=== PATIENT | male | born 1960 | race Caucasian/White ===

== ENCOUNTER 2022-12-04 15:32 | Inpatient (IN) | payer OTHER ==
[2022-12-04 16:04] VITALS: BMI 31.0
[2022-12-04] MEDS ORDERED: guaiFENesin 600 MG TABLET.ER (FP) PO PRN (19:57)
[2022-12-04] MEDS ORDERED: BENZOCAINE/MENTHOL (CHLORASEPTIC ) LOZENGE MM PRN (19:57)
[2022-12-04] MEDS ORDERED: NICOTINE POLACRILEX 2 MG GUM BUC PRN (19:57)
[2022-12-04] MEDS ORDERED: NALOXONE HCL (KLOXXADO) 8 MG SPRAY NS PRN (19:57)
[2022-12-04] MEDS ORDERED: AMMONIUM LACTATE 12% LOTION 225 GM BOTTLE TP PRN (19:57)
[2022-12-04] MEDS ORDERED: LOPERAMIDE HCL 2 MG CAPSULE PO PRN (19:57)
[2022-12-04] MEDS ORDERED: MAG HYDROX/AL HYDROX/SIMETH 30 ML UNIT-DOSE CUP PO PRN (19:57)
[2022-12-04] MEDS ORDERED: POLYETHYLENE GLYCOL (HEALTHYLAX) 3350 17 GM PACKET PO PRN (19:57)
[2022-12-04] MEDS ORDERED: MAGNESIUM HYDROX 2400MG/30ML ORAL SUSPENSION 30 ML CUP PO PRN (19:57)
[2022-12-04] MEDS ORDERED: NALOXONE HCL 0.4 MG/ML VIAL IM PRN (19:57)
[2022-12-04] MEDS ORDERED: BENZONATATE 200 MG CAPSULE PO PRN (19:57)
[2022-12-04] MEDS: MELATONIN 5 MG TABLETS PO SCH (22:56)
[2022-12-04] MEDS: THIAMINE HCL 100 MG TABLET (FP) PO SCH (22:57)
[2022-12-04] MEDS ORDERED: TUBERCULIN PPD 5 TU/0.1ML SYRINGE (IN PATIENT USE ONLY) ID ONE (23:00)
[2022-12-04] MEDS ORDERED: TUBERCULIN PPD 5 TU/0.1ML VIAL ID ONE (23:40)
[2022-12-05 10:27] LABS: HEMATOCRIT 41.6 % (35.4-49); HEMOGLOBIN 14.3 GM/dL (11.7-16.9); MCHC 34.5 g/dl (32.0-35.9); MEAN CELL VOLUME 92.9 fl (80-96); MEAN PLT VOLUME 9.6 fl (7.5-11.1); PLATELET COUNT 291 10^3/uL (134-434); RBC 4.48 M/mm3 (4.00-5.60); RDW 13.9 % (11.9-15.9); WHITE BLOOD COUNT 11.3 K/mm3 (4.0-10.0)
[2022-12-05 10:33] LABS: CALCIUM 8.4 mg/dL (8.5-10.1)
[2022-12-05 10:34] LABS: BLOOD UREA NITROGEN 14.3 mg/dL (7-18)
[2022-12-05 10:37] LABS: CREATININE 0.8 mg/dL (0.55-1.3)
[2022-12-05 10:39] LABS: BILIRUBIN,TOTAL 0.3 mg/dL (0.2-1); TOT PROT 7.1 g/dl (6.4-8.2)
[2022-12-05] MEDS ORDERED: methaDONE HCL 10 MG TABLET PO SCH (11:45)
[2022-12-05] MEDS: PRENATAL VITAMINS W/ FOLIC ACID TABLET (FP) PO SCH (12:00)
[2022-12-05] MEDS: NICOTINE 14 MG/24 HOURS TOPICAL PATCH TD SCH (12:00)
[2022-12-05 13:58] LABS: SYPHILIS W/ RPR CONF NON-REACTIVE (NONREACTIVE)
[2022-12-05] MEDS: THIAMINE HCL 100 MG TABLET (FP) PO SCH (21:39)
[2022-12-05] MEDS: MELATONIN 5 MG TABLETS PO SCH (21:39)
[2022-12-05] MEDS: IBUPROFEN 600 MG TABLET (FP) PO PRN (23:20)
[2022-12-06] MEDS: IBUPROFEN 600 MG TABLET (FP) PO PRN (08:59)
[2022-12-06] MEDS: NICOTINE 14 MG/24 HOURS TOPICAL PATCH TD SCH (10:13)
[2022-12-06] MEDS: LISINOPRIL 10 MG TABLET PO SCH (10:13)
[2022-12-06] MEDS: PRENATAL VITAMINS W/ FOLIC ACID TABLET (FP) PO SCH (10:13)
[2022-12-06] MEDS: HYDROCHLOROTHIAZIDE 25 MG TABLET (FP) PO SCH (10:13)
[2022-12-06] MEDS: DARUNAVIR/COB/EMTRI/TENOF (SYMTUZA) TABLET (NF) PO SCH (10:13)
[2022-12-06] MEDS: metFORMIN HCL 500 MG TABLET (FP) PO SCH ×2 (10:13→16:51)
[2022-12-06] MEDS: ARTIFICIAL TEARS (POLYVINYL ALCOHOL) OPTH DROPS OU PRN (10:19)
[2022-12-06] MEDS: ATORVASTATIN CA 10 MG TABLET (FP) PO SCH (21:08)
[2022-12-06] MEDS: MELATONIN 5 MG TABLETS PO SCH (21:08)
[2022-12-06] MEDS: THIAMINE HCL 100 MG TABLET (FP) PO SCH (21:08)
[2022-12-06] MEDS: IBUPROFEN 400 MG TABLET (FP) PO PRN (21:09)
[2022-12-07] MEDS: metFORMIN HCL 500 MG TABLET (FP) PO SCH ×2 (06:12→17:12)
[2022-12-07] MEDS: ACETAMINOPHEN 325 MG TABLET (FP) PO PRN (07:00)
[2022-12-07] MEDS: DARUNAVIR/COB/EMTRI/TENOF (SYMTUZA) TABLET (NF) PO SCH (07:26)
[2022-12-07] MEDS: LISINOPRIL 10 MG TABLET PO SCH (10:07)
[2022-12-07] MEDS: NICOTINE 14 MG/24 HOURS TOPICAL PATCH TD SCH (10:07)
[2022-12-07] MEDS: PRENATAL VITAMINS W/ FOLIC ACID TABLET (FP) PO SCH (10:07)
[2022-12-07] MEDS: HYDROCHLOROTHIAZIDE 25 MG TABLET (FP) PO SCH (10:07)
[2022-12-07] MEDS: IBUPROFEN 600 MG TABLET (FP) PO PRN (13:36)
[2022-12-07] MEDS: ARTIFICIAL TEARS (POLYVINYL ALCOHOL) OPTH DROPS OU PRN ×2 (13:38→21:30)
[2022-12-07] MEDS: MELATONIN 5 MG TABLETS PO SCH (21:28)
[2022-12-07] MEDS: THIAMINE HCL 100 MG TABLET (FP) PO SCH (21:29)
[2022-12-07] MEDS: ATORVASTATIN CA 10 MG TABLET (FP) PO SCH (21:29)
[2022-12-07] MEDS: IBUPROFEN 400 MG TABLET (FP) PO PRN (21:29)
[2022-12-08] MEDS: ACETAMINOPHEN 325 MG TABLET (FP) PO PRN ×2 (02:19→23:11)
[2022-12-08] MEDS: metFORMIN HCL 500 MG TABLET (FP) PO SCH ×2 (06:29→16:34)
[2022-12-08] MEDS: DARUNAVIR/COB/EMTRI/TENOF (SYMTUZA) TABLET (NF) PO SCH (07:32)
[2022-12-08] MEDS: NICOTINE 14 MG/24 HOURS TOPICAL PATCH TD SCH (10:21)
[2022-12-08] MEDS: PRENATAL VITAMINS W/ FOLIC ACID TABLET (FP) PO SCH (10:21)
[2022-12-08] MEDS: LISINOPRIL 10 MG TABLET PO SCH (10:21)
[2022-12-08] MEDS: HYDROCHLOROTHIAZIDE 25 MG TABLET (FP) PO SCH (10:21)
[2022-12-08] MEDS: ARTIFICIAL TEARS (POLYVINYL ALCOHOL) OPTH DROPS OU PRN ×2 (10:23→21:33)
[2022-12-08] MEDS: IBUPROFEN 600 MG TABLET (FP) PO PRN (13:34)
[2022-12-08] MEDS: MELATONIN 5 MG TABLETS PO SCH (21:33)
[2022-12-08] MEDS: ATORVASTATIN CA 10 MG TABLET (FP) PO SCH (21:33)
[2022-12-08] MEDS: THIAMINE HCL 100 MG TABLET (FP) PO SCH (21:35)
[2022-12-09] MEDS: IBUPROFEN 600 MG TABLET (FP) PO PRN ×2 (01:38→13:46)
[2022-12-09] MEDS: metFORMIN HCL 500 MG TABLET (FP) PO SCH ×2 (06:29→16:32)
[2022-12-09] MEDS: DARUNAVIR/COB/EMTRI/TENOF (SYMTUZA) TABLET (NF) PO SCH (07:06)
[2022-12-09] MEDS: PRENATAL VITAMINS W/ FOLIC ACID TABLET (FP) PO SCH (09:56)
[2022-12-09] MEDS: NICOTINE 14 MG/24 HOURS TOPICAL PATCH TD SCH (09:56)
[2022-12-09] MEDS: LISINOPRIL 10 MG TABLET PO SCH (09:57)
[2022-12-09] MEDS: HYDROCHLOROTHIAZIDE 25 MG TABLET (FP) PO SCH (09:57)
[2022-12-09] MEDS: THIAMINE HCL 100 MG TABLET (FP) PO SCH (21:29)
[2022-12-09] MEDS: ATORVASTATIN CA 10 MG TABLET (FP) PO SCH (21:29)
[2022-12-09] MEDS: MELATONIN 5 MG TABLETS PO SCH (21:29)
[2022-12-10] MEDS: IBUPROFEN 600 MG TABLET (FP) PO PRN (04:29)
[2022-12-10] MEDS: metFORMIN HCL 500 MG TABLET (FP) PO SCH ×2 (06:41→16:24)
[2022-12-10] MEDS: PRENATAL VITAMINS W/ FOLIC ACID TABLET (FP) PO SCH (09:54)
[2022-12-10] MEDS: LISINOPRIL 10 MG TABLET PO SCH (09:54)
[2022-12-10] MEDS: HYDROCHLOROTHIAZIDE 25 MG TABLET (FP) PO SCH (09:54)
[2022-12-10] MEDS: NICOTINE 14 MG/24 HOURS TOPICAL PATCH TD SCH (09:54)
[2022-12-10] MEDS: DARUNAVIR/COB/EMTRI/TENOF (SYMTUZA) TABLET (NF) PO SCH (09:55)
[2022-12-10 15:46] LABS: PH,URINE 5.5 (5.0-8.0); URINE APPEARANCE CLEAR; URINE BILIRUBIN NEGATIVE (NEGATIVE); URINE COLOR YELLOW; URINE GLUCOSE (UA) NEGATIVE (NEGATIVE); URINE KETONE NEGATIVE (NEGATIVE); URINE LEUK ESTERASE NEGATIVE (NEGATIVE); URINE NITRITE NEGATIVE (NEGATIVE); URINE PROTEIN NEGATIVE (NEGATIVE); URINE UROBILINOGEN 0.2 mg/dL (0.2-1.0)
[2022-12-10] MEDS: ATORVASTATIN CA 10 MG TABLET (FP) PO SCH (21:26)
[2022-12-10] MEDS: MELATONIN 5 MG TABLETS PO SCH (21:26)
[2022-12-10] MEDS: THIAMINE HCL 100 MG TABLET (FP) PO SCH (21:26)
[2022-12-10] MEDS: ARTIFICIAL TEARS (POLYVINYL ALCOHOL) OPTH DROPS OU PRN (21:27)
[2022-12-11] MEDS: IBUPROFEN 600 MG TABLET (FP) PO PRN (01:00)
[2022-12-11] MEDS: metFORMIN HCL 500 MG TABLET (FP) PO SCH ×2 (06:21→16:31)
[2022-12-11] MEDS: DARUNAVIR/COB/EMTRI/TENOF (SYMTUZA) TABLET (NF) PO SCH (07:13)
[2022-12-11] MEDS: NICOTINE 14 MG/24 HOURS TOPICAL PATCH TD SCH (09:48)
[2022-12-11] MEDS: PRENATAL VITAMINS W/ FOLIC ACID TABLET (FP) PO SCH (09:48)
[2022-12-11] MEDS: LISINOPRIL 10 MG TABLET PO SCH (09:49)
[2022-12-11] MEDS: HYDROCHLOROTHIAZIDE 25 MG TABLET (FP) PO SCH (09:49)
[2022-12-11] MEDS: NICOTINE 10 MG CARTRIDGE (INHALER) IH PRN (11:59)
[2022-12-11] MEDS: ARTIFICIAL TEARS (POLYVINYL ALCOHOL) OPTH DROPS OU PRN ×2 (16:32→21:30)
[2022-12-11] MEDS: MELATONIN 5 MG TABLETS PO SCH (21:29)
[2022-12-11] MEDS: ATORVASTATIN CA 10 MG TABLET (FP) PO SCH (21:29)
[2022-12-11] MEDS: THIAMINE HCL 100 MG TABLET (FP) PO SCH (21:29)
[2022-12-12] MEDS: metFORMIN HCL 500 MG TABLET (FP) PO SCH ×2 (06:08→16:27)
[2022-12-12] MEDS: DARUNAVIR/COB/EMTRI/TENOF (SYMTUZA) TABLET (NF) PO SCH (07:08)
[2022-12-12] MEDS: HYDROCHLOROTHIAZIDE 25 MG TABLET (FP) PO SCH (10:10)
[2022-12-12] MEDS: LISINOPRIL 10 MG TABLET PO SCH (10:10)
[2022-12-12] MEDS: NICOTINE 14 MG/24 HOURS TOPICAL PATCH TD SCH (10:10)
[2022-12-12] MEDS: PRENATAL VITAMINS W/ FOLIC ACID TABLET (FP) PO SCH (10:11)
[2022-12-12] MEDS: MELATONIN 5 MG TABLETS PO SCH (21:31)
[2022-12-12] MEDS: ATORVASTATIN CA 10 MG TABLET (FP) PO SCH (21:31)
[2022-12-12] MEDS: THIAMINE HCL 100 MG TABLET (FP) PO SCH (21:31)
[2022-12-12] MEDS: COLLOIDAL OATMEAL 1 BAR EACH TP PRN (21:33)
[2022-12-13] MEDS: ACETAMINOPHEN 325 MG TABLET (FP) PO PRN (01:12)
[2022-12-13] MEDS: metFORMIN HCL 500 MG TABLET (FP) PO SCH ×2 (06:09→18:20)
[2022-12-13] MEDS: DARUNAVIR/COB/EMTRI/TENOF (SYMTUZA) TABLET (NF) PO SCH (07:04)
[2022-12-13] MEDS: HYDROCHLOROTHIAZIDE 25 MG TABLET (FP) PO SCH (10:08)
[2022-12-13] MEDS: PRENATAL VITAMINS W/ FOLIC ACID TABLET (FP) PO SCH (10:08)
[2022-12-13] MEDS: LISINOPRIL 10 MG TABLET PO SCH (10:08)
[2022-12-13] MEDS: NICOTINE 14 MG/24 HOURS TOPICAL PATCH TD SCH (10:08)
[2022-12-13] MEDS: IBUPROFEN 600 MG TABLET (FP) PO PRN (17:01)
[2022-12-13] MEDS: ATORVASTATIN CA 10 MG TABLET (FP) PO SCH (21:37)
[2022-12-13] MEDS: THIAMINE HCL 100 MG TABLET (FP) PO SCH (21:37)
[2022-12-13] MEDS: MELATONIN 5 MG TABLETS PO SCH (21:37)
[2022-12-13] MEDS: ARTIFICIAL TEARS (POLYVINYL ALCOHOL) OPTH DROPS OU PRN (21:38)
[2022-12-14] MEDS: IBUPROFEN 400 MG TABLET (FP) PO PRN (02:13)
[2022-12-14] MEDS: metFORMIN HCL 500 MG TABLET (FP) PO SCH ×2 (06:00→17:04)
[2022-12-14] MEDS: DARUNAVIR/COB/EMTRI/TENOF (SYMTUZA) TABLET (NF) PO SCH (07:02)
[2022-12-14] MEDS: LISINOPRIL 10 MG TABLET PO SCH (09:52)
[2022-12-14] MEDS: HYDROCHLOROTHIAZIDE 25 MG TABLET (FP) PO SCH (09:52)
[2022-12-14] MEDS: PRENATAL VITAMINS W/ FOLIC ACID TABLET (FP) PO SCH (09:52)
[2022-12-14] MEDS: ARTIFICIAL TEARS (POLYVINYL ALCOHOL) OPTH DROPS OU PRN ×2 (09:53→21:48)
[2022-12-14] MEDS: NICOTINE 14 MG/24 HOURS TOPICAL PATCH TD SCH (09:53)
[2022-12-14] MEDS: IBUPROFEN 600 MG TABLET (FP) PO PRN (09:54)
[2022-12-14] MEDS: MELATONIN 5 MG TABLETS PO SCH (21:48)
[2022-12-14] MEDS: ATORVASTATIN CA 10 MG TABLET (FP) PO SCH (21:48)
[2022-12-14] MEDS: THIAMINE HCL 100 MG TABLET (FP) PO SCH (21:48)
[2022-12-15] MEDS: metFORMIN HCL 500 MG TABLET (FP) PO SCH ×2 (06:08→16:39)
[2022-12-15] MEDS: DARUNAVIR/COB/EMTRI/TENOF (SYMTUZA) TABLET (NF) PO SCH (07:03)
[2022-12-15] MEDS: IBUPROFEN 600 MG TABLET (FP) PO PRN (08:36)
[2022-12-15] MEDS: PRENATAL VITAMINS W/ FOLIC ACID TABLET (FP) PO SCH (10:10)
[2022-12-15] MEDS: LISINOPRIL 10 MG TABLET PO SCH (10:10)
[2022-12-15] MEDS: HYDROCHLOROTHIAZIDE 25 MG TABLET (FP) PO SCH (10:10)
[2022-12-15] MEDS: NICOTINE 14 MG/24 HOURS TOPICAL PATCH TD SCH (10:10)
[2022-12-15] MEDS ORDERED: GABAPENTIN 400 MG CAPSULE PO SCH (14:45)
[2022-12-15] MEDS: GABAPENTIN 300 MG CAPSULE PO SCH (21:57)
[2022-12-15] MEDS: QUEtiapine FUMARATE 25 MG TABLET PO SCH (21:57)
[2022-12-15] MEDS: MELATONIN 5 MG TABLETS PO SCH (21:57)
[2022-12-15] MEDS: ATORVASTATIN CA 10 MG TABLET (FP) PO SCH (21:57)
[2022-12-15] MEDS: THIAMINE HCL 100 MG TABLET (FP) PO SCH (21:57)
[2022-12-16] MEDS: GABAPENTIN 300 MG CAPSULE PO SCH ×3 (06:51→21:47)
[2022-12-16] MEDS: metFORMIN HCL 500 MG TABLET (FP) PO SCH ×2 (06:51→16:35)
[2022-12-16] MEDS: DARUNAVIR/COB/EMTRI/TENOF (SYMTUZA) TABLET (NF) PO SCH (07:16)
[2022-12-16] MEDS: PRENATAL VITAMINS W/ FOLIC ACID TABLET (FP) PO SCH (10:06)
[2022-12-16] MEDS: LISINOPRIL 10 MG TABLET PO SCH (10:07)
[2022-12-16] MEDS: HYDROCHLOROTHIAZIDE 25 MG TABLET (FP) PO SCH (10:07)
[2022-12-16] MEDS: NICOTINE 14 MG/24 HOURS TOPICAL PATCH TD SCH (10:07)
[2022-12-16] MEDS: BACLOFEN 10 MG TABLET (FP) PO PRN ×2 (13:55→21:50)
[2022-12-16] MEDS: MELATONIN 5 MG TABLETS PO SCH (21:47)
[2022-12-16] MEDS: QUEtiapine FUMARATE 25 MG TABLET PO SCH (21:48)
[2022-12-16] MEDS: THIAMINE HCL 100 MG TABLET (FP) PO SCH (21:48)
[2022-12-16] MEDS: ATORVASTATIN CA 10 MG TABLET (FP) PO SCH (21:48)
[2022-12-16] MEDS: ARTIFICIAL TEARS (POLYVINYL ALCOHOL) OPTH DROPS OU PRN (21:52)
[2022-12-17] MEDS: metFORMIN HCL 500 MG TABLET (FP) PO SCH ×2 (06:27→16:54)
[2022-12-17] MEDS: GABAPENTIN 300 MG CAPSULE PO SCH ×3 (06:27→21:46)
[2022-12-17] MEDS: DARUNAVIR/COB/EMTRI/TENOF (SYMTUZA) TABLET (NF) PO SCH (07:57)
[2022-12-17] MEDS: LISINOPRIL 10 MG TABLET PO SCH (10:04)
[2022-12-17] MEDS: HYDROCHLOROTHIAZIDE 25 MG TABLET (FP) PO SCH (10:04)
[2022-12-17] MEDS: PRENATAL VITAMINS W/ FOLIC ACID TABLET (FP) PO SCH (10:04)
[2022-12-17] MEDS: NICOTINE 14 MG/24 HOURS TOPICAL PATCH TD SCH (10:04)
[2022-12-17] MEDS: MELATONIN 5 MG TABLETS PO SCH (21:46)
[2022-12-17] MEDS: THIAMINE HCL 100 MG TABLET (FP) PO SCH (21:46)
[2022-12-17] MEDS: QUEtiapine FUMARATE 25 MG TABLET PO SCH (21:46)
[2022-12-17] MEDS: ATORVASTATIN CA 10 MG TABLET (FP) PO SCH (21:46)
[2022-12-17] MEDS: ARTIFICIAL TEARS (POLYVINYL ALCOHOL) OPTH DROPS OU PRN (21:49)
[2022-12-18] MEDS: GABAPENTIN 300 MG CAPSULE PO SCH ×3 (07:08→21:28)
[2022-12-18] MEDS: metFORMIN HCL 500 MG TABLET (FP) PO SCH ×2 (07:11→16:33)
[2022-12-18] MEDS: DARUNAVIR/COB/EMTRI/TENOF (SYMTUZA) TABLET (NF) PO SCH (07:12)
[2022-12-18] MEDS: NICOTINE 14 MG/24 HOURS TOPICAL PATCH TD SCH (10:11)
[2022-12-18] MEDS: HYDROCHLOROTHIAZIDE 25 MG TABLET (FP) PO SCH (10:11)
[2022-12-18] MEDS: LISINOPRIL 10 MG TABLET PO SCH (10:11)
[2022-12-18] MEDS: PRENATAL VITAMINS W/ FOLIC ACID TABLET (FP) PO SCH (10:11)
[2022-12-18] MEDS: MELATONIN 5 MG TABLETS PO SCH (21:28)
[2022-12-18] MEDS: ATORVASTATIN CA 10 MG TABLET (FP) PO SCH (21:28)
[2022-12-18] MEDS: ARTIFICIAL TEARS (POLYVINYL ALCOHOL) OPTH DROPS OU PRN (21:28)
[2022-12-18] MEDS: QUEtiapine FUMARATE 25 MG TABLET PO SCH (21:28)
[2022-12-18] MEDS: THIAMINE HCL 100 MG TABLET (FP) PO SCH (21:28)
[2022-12-19] MEDS: metFORMIN HCL 500 MG TABLET (FP) PO SCH ×2 (06:21→16:50)
[2022-12-19] MEDS: GABAPENTIN 300 MG CAPSULE PO SCH ×3 (06:22→21:36)
[2022-12-19] MEDS: DARUNAVIR/COB/EMTRI/TENOF (SYMTUZA) TABLET (NF) PO SCH (07:06)
[2022-12-19] MEDS: IBUPROFEN 600 MG TABLET (FP) PO PRN (09:18)
[2022-12-19] MEDS: LISINOPRIL 10 MG TABLET PO SCH (09:19)
[2022-12-19] MEDS: PRENATAL VITAMINS W/ FOLIC ACID TABLET (FP) PO SCH (09:19)
[2022-12-19] MEDS: HYDROCHLOROTHIAZIDE 25 MG TABLET (FP) PO SCH (09:19)
[2022-12-19] MEDS: NICOTINE 14 MG/24 HOURS TOPICAL PATCH TD SCH (09:21)
[2022-12-19] MEDS: ATORVASTATIN CA 10 MG TABLET (FP) PO SCH (21:36)
[2022-12-19] MEDS: QUEtiapine FUMARATE 25 MG TABLET PO SCH (21:36)
[2022-12-19] MEDS: MELATONIN 5 MG TABLETS PO SCH (21:36)
[2022-12-19] MEDS: THIAMINE HCL 100 MG TABLET (FP) PO SCH (21:36)
[2022-12-19] MEDS: ACETAMINOPHEN 325 MG TABLET (FP) PO PRN (22:08)
[2022-12-20] MEDS ORDERED: methaDONE HCL 10 MG TABLET PO SCH (06:00)
[2022-12-20] MEDS: metFORMIN HCL 500 MG TABLET (FP) PO SCH ×2 (06:21→16:51)
[2022-12-20] MEDS: GABAPENTIN 300 MG CAPSULE PO SCH ×3 (06:22→21:42)
[2022-12-20] MEDS: COLLOIDAL OATMEAL 1 BAR EACH TP PRN (06:45)
[2022-12-20] MEDS: DARUNAVIR/COB/EMTRI/TENOF (SYMTUZA) TABLET (NF) PO SCH (07:02)
[2022-12-20] MEDS: PRENATAL VITAMINS W/ FOLIC ACID TABLET (FP) PO SCH (09:58)
[2022-12-20] MEDS: LISINOPRIL 10 MG TABLET PO SCH (09:58)
[2022-12-20] MEDS: NICOTINE 14 MG/24 HOURS TOPICAL PATCH TD SCH (09:58)
[2022-12-20] MEDS: HYDROCHLOROTHIAZIDE 25 MG TABLET (FP) PO SCH (09:58)
[2022-12-20] MEDS: IBUPROFEN 600 MG TABLET (FP) PO PRN ×2 (09:59→21:46)
[2022-12-20] MEDS: MELATONIN 5 MG TABLETS PO SCH (21:41)
[2022-12-20] MEDS: THIAMINE HCL 100 MG TABLET (FP) PO SCH (21:42)
[2022-12-20] MEDS: QUEtiapine FUMARATE 25 MG TABLET PO SCH (21:42)
[2022-12-20] MEDS: ATORVASTATIN CA 10 MG TABLET (FP) PO SCH (21:42)
[2022-12-20] MEDS: BACLOFEN 10 MG TABLET (FP) PO PRN (21:45)
[2022-12-21] MEDS: metFORMIN HCL 500 MG TABLET (FP) PO SCH ×2 (06:13→16:48)
[2022-12-21] MEDS: GABAPENTIN 300 MG CAPSULE PO SCH ×3 (06:13→21:28)
[2022-12-21] MEDS: DARUNAVIR/COB/EMTRI/TENOF (SYMTUZA) TABLET (NF) PO SCH (07:23)
[2022-12-21] MEDS: LISINOPRIL 10 MG TABLET PO SCH (09:59)
[2022-12-21] MEDS: HYDROCHLOROTHIAZIDE 25 MG TABLET (FP) PO SCH (09:59)
[2022-12-21] MEDS: PRENATAL VITAMINS W/ FOLIC ACID TABLET (FP) PO SCH (09:59)
[2022-12-21] MEDS: BACLOFEN 10 MG TABLET (FP) PO PRN ×2 (10:01→21:31)
[2022-12-21] MEDS: NICOTINE 14 MG/24 HOURS TOPICAL PATCH TD SCH (10:02)
[2022-12-21] MEDS: ACETAMINOPHEN 325 MG TABLET (FP) PO PRN (13:50)
[2022-12-21] MEDS: ARTIFICIAL TEARS (POLYVINYL ALCOHOL) OPTH DROPS OU PRN (21:28)
[2022-12-21] MEDS: MELATONIN 5 MG TABLETS PO SCH (21:28)
[2022-12-21] MEDS: QUEtiapine FUMARATE 25 MG TABLET PO SCH (21:28)
[2022-12-21] MEDS: ATORVASTATIN CA 10 MG TABLET (FP) PO SCH (21:28)
[2022-12-21] MEDS: THIAMINE HCL 100 MG TABLET (FP) PO SCH (21:29)
[2022-12-21] MEDS: IBUPROFEN 400 MG TABLET (FP) PO PRN (21:31)
[2022-12-22] MEDS: GABAPENTIN 300 MG CAPSULE PO SCH ×3 (06:06→21:13)
[2022-12-22] MEDS: metFORMIN HCL 500 MG TABLET (FP) PO SCH ×2 (06:07→16:41)
[2022-12-22] MEDS: DARUNAVIR/COB/EMTRI/TENOF (SYMTUZA) TABLET (NF) PO SCH (07:54)
[2022-12-22] MEDS: PRENATAL VITAMINS W/ FOLIC ACID TABLET (FP) PO SCH (09:30)
[2022-12-22] MEDS: HYDROCHLOROTHIAZIDE 25 MG TABLET (FP) PO SCH (09:31)
[2022-12-22] MEDS: NICOTINE 14 MG/24 HOURS TOPICAL PATCH TD SCH (09:31)
[2022-12-22] MEDS: LISINOPRIL 10 MG TABLET PO SCH (09:31)
[2022-12-22] MEDS: MELATONIN 5 MG TABLETS PO SCH (21:12)
[2022-12-22] MEDS: ARTIFICIAL TEARS (POLYVINYL ALCOHOL) OPTH DROPS OU PRN (21:12)
[2022-12-22] MEDS: QUEtiapine FUMARATE 25 MG TABLET PO SCH (21:12)
[2022-12-22] MEDS: THIAMINE HCL 100 MG TABLET (FP) PO SCH (21:12)
[2022-12-22] MEDS: BACLOFEN 10 MG TABLET (FP) PO PRN (21:13)
[2022-12-22] MEDS: ATORVASTATIN CA 10 MG TABLET (FP) PO SCH (21:13)
[2022-12-22] MEDS: NICOTINE 10 MG CARTRIDGE (INHALER) IH PRN (23:23)
[2022-12-22] MEDS: IBUPROFEN 600 MG TABLET (FP) PO PRN (23:25)
[2022-12-23] MEDS: GABAPENTIN 300 MG CAPSULE PO SCH ×3 (06:35→21:27)
[2022-12-23] MEDS: metFORMIN HCL 500 MG TABLET (FP) PO SCH ×2 (06:35→16:51)
[2022-12-23] MEDS: DARUNAVIR/COB/EMTRI/TENOF (SYMTUZA) TABLET (NF) PO SCH (07:32)
[2022-12-23] MEDS: HYDROCHLOROTHIAZIDE 25 MG TABLET (FP) PO SCH (09:45)
[2022-12-23] MEDS: LISINOPRIL 10 MG TABLET PO SCH (09:45)
[2022-12-23] MEDS: PRENATAL VITAMINS W/ FOLIC ACID TABLET (FP) PO SCH (09:45)
[2022-12-23] MEDS: NICOTINE 14 MG/24 HOURS TOPICAL PATCH TD SCH (09:46)
[2022-12-23] MEDS: IBUPROFEN 600 MG TABLET (FP) PO PRN ×2 (11:14→21:28)
[2022-12-23] MEDS: THIAMINE HCL 100 MG TABLET (FP) PO SCH (21:27)
[2022-12-23] MEDS: MELATONIN 5 MG TABLETS PO SCH (21:27)
[2022-12-23] MEDS: ATORVASTATIN CA 10 MG TABLET (FP) PO SCH (21:27)
[2022-12-23] MEDS: QUEtiapine FUMARATE 25 MG TABLET PO SCH (21:27)
[2022-12-24] MEDS: NICOTINE 10 MG CARTRIDGE (INHALER) IH PRN (06:01)
[2022-12-24] MEDS: GABAPENTIN 300 MG CAPSULE PO SCH ×3 (06:02→21:16)
[2022-12-24] MEDS: metFORMIN HCL 500 MG TABLET (FP) PO SCH ×2 (06:02→16:41)
[2022-12-24] MEDS: DARUNAVIR/COB/EMTRI/TENOF (SYMTUZA) TABLET (NF) PO SCH (07:26)
[2022-12-24] MEDS: PRENATAL VITAMINS W/ FOLIC ACID TABLET (FP) PO SCH (10:02)
[2022-12-24] MEDS: NICOTINE 14 MG/24 HOURS TOPICAL PATCH TD SCH (10:02)
[2022-12-24] MEDS: LISINOPRIL 10 MG TABLET PO SCH (10:03)
[2022-12-24] MEDS: HYDROCHLOROTHIAZIDE 25 MG TABLET (FP) PO SCH (10:03)
[2022-12-24] MEDS: IBUPROFEN 600 MG TABLET (FP) PO PRN ×2 (10:07→19:02)
[2022-12-24] MEDS: THIAMINE HCL 100 MG TABLET (FP) PO SCH (21:16)
[2022-12-24] MEDS: ATORVASTATIN CA 10 MG TABLET (FP) PO SCH (21:16)
[2022-12-24] MEDS: QUEtiapine FUMARATE 25 MG TABLET PO SCH (21:16)
[2022-12-24] MEDS: MELATONIN 5 MG TABLETS PO SCH (21:16)
[2022-12-25] MEDS: GABAPENTIN 300 MG CAPSULE PO SCH ×3 (06:47→21:27)
[2022-12-25] MEDS: metFORMIN HCL 500 MG TABLET (FP) PO SCH ×2 (06:47→16:37)
[2022-12-25] MEDS: DARUNAVIR/COB/EMTRI/TENOF (SYMTUZA) TABLET (NF) PO SCH (07:24)
[2022-12-25 08:22] VITALS: RESP 18
[2022-12-25] MEDS: HYDROCHLOROTHIAZIDE 25 MG TABLET (FP) PO SCH (09:59)
[2022-12-25] MEDS: LISINOPRIL 10 MG TABLET PO SCH (09:59)
[2022-12-25] MEDS: IBUPROFEN 600 MG TABLET (FP) PO PRN ×2 (09:59→23:25)
[2022-12-25] MEDS: PRENATAL VITAMINS W/ FOLIC ACID TABLET (FP) PO SCH (10:00)
[2022-12-25] MEDS: NICOTINE 14 MG/24 HOURS TOPICAL PATCH TD SCH (10:00)
[2022-12-25] MEDS: BACLOFEN 10 MG TABLET (FP) PO PRN ×2 (10:01→21:27)
[2022-12-25] MEDS: MELATONIN 5 MG TABLETS PO SCH (21:27)
[2022-12-25] MEDS: ATORVASTATIN CA 10 MG TABLET (FP) PO SCH (21:27)
[2022-12-25] MEDS: QUEtiapine FUMARATE 25 MG TABLET PO SCH (21:27)
[2022-12-25] MEDS: THIAMINE HCL 100 MG TABLET (FP) PO SCH (21:27)
[2022-12-26] MEDS: GABAPENTIN 300 MG CAPSULE PO SCH ×3 (06:23→21:17)
[2022-12-26] MEDS: metFORMIN HCL 500 MG TABLET (FP) PO SCH ×2 (06:23→16:26)
[2022-12-26] MEDS: DARUNAVIR/COB/EMTRI/TENOF (SYMTUZA) TABLET (NF) PO SCH (07:02)
[2022-12-26] MEDS: PRENATAL VITAMINS W/ FOLIC ACID TABLET (FP) PO SCH (09:54)
[2022-12-26] MEDS: NICOTINE 14 MG/24 HOURS TOPICAL PATCH TD SCH (09:55)
[2022-12-26] MEDS: ARTIFICIAL TEARS (POLYVINYL ALCOHOL) OPTH DROPS OU PRN ×2 (09:56→21:18)
[2022-12-26] MEDS: HYDROCHLOROTHIAZIDE 25 MG TABLET (FP) PO SCH (11:00)
[2022-12-26] MEDS: LISINOPRIL 10 MG TABLET PO SCH (11:00)
[2022-12-26] MEDS: THIAMINE HCL 100 MG TABLET (FP) PO SCH (21:16)
[2022-12-26] MEDS: MELATONIN 5 MG TABLETS PO SCH (21:16)
[2022-12-26] MEDS: QUEtiapine FUMARATE 25 MG TABLET PO SCH (21:17)
[2022-12-26] MEDS: ATORVASTATIN CA 10 MG TABLET (FP) PO SCH (21:17)
[2022-12-26] MEDS: BACLOFEN 10 MG TABLET (FP) PO PRN (22:27)
[2022-12-27] MEDS: GABAPENTIN 300 MG CAPSULE PO SCH ×3 (06:56→21:21)
[2022-12-27] MEDS: metFORMIN HCL 500 MG TABLET (FP) PO SCH ×2 (06:56→16:48)
[2022-12-27] MEDS: DARUNAVIR/COB/EMTRI/TENOF (SYMTUZA) TABLET (NF) PO SCH (07:35)
[2022-12-27] MEDS: LISINOPRIL 10 MG TABLET PO SCH (09:45)
[2022-12-27] MEDS: PRENATAL VITAMINS W/ FOLIC ACID TABLET (FP) PO SCH (09:45)
[2022-12-27] MEDS: HYDROCHLOROTHIAZIDE 25 MG TABLET (FP) PO SCH (09:46)
[2022-12-27] MEDS: NICOTINE 14 MG/24 HOURS TOPICAL PATCH TD SCH (09:46)
[2022-12-27] MEDS: ARTIFICIAL TEARS (POLYVINYL ALCOHOL) OPTH DROPS OU PRN (09:47)
[2022-12-27] MEDS: IBUPROFEN 600 MG TABLET (FP) PO PRN (11:09)
[2022-12-27] MEDS: MELATONIN 5 MG TABLETS PO SCH (21:20)
[2022-12-27] MEDS: THIAMINE HCL 100 MG TABLET (FP) PO SCH (21:21)
[2022-12-27] MEDS: ATORVASTATIN CA 10 MG TABLET (FP) PO SCH (21:21)
[2022-12-27] MEDS: BACLOFEN 10 MG TABLET (FP) PO PRN (21:21)
[2022-12-27] MEDS: QUEtiapine FUMARATE 25 MG TABLET PO SCH (21:21)
[2022-12-28] MEDS: metFORMIN HCL 500 MG TABLET (FP) PO SCH ×2 (06:07→16:44)
[2022-12-28] MEDS: GABAPENTIN 300 MG CAPSULE PO SCH ×3 (06:07→21:26)
[2022-12-28] MEDS: IBUPROFEN 400 MG TABLET (FP) PO PRN (06:44)
[2022-12-28] MEDS: COLLOIDAL OATMEAL 1 BAR EACH TP PRN (07:00)
[2022-12-28] MEDS: DARUNAVIR/COB/EMTRI/TENOF (SYMTUZA) TABLET (NF) PO SCH (07:17)
[2022-12-28] MEDS: HYDROCHLOROTHIAZIDE 25 MG TABLET (FP) PO SCH (09:57)
[2022-12-28] MEDS: ARTIFICIAL TEARS (POLYVINYL ALCOHOL) OPTH DROPS OU PRN (09:57)
[2022-12-28] MEDS: PRENATAL VITAMINS W/ FOLIC ACID TABLET (FP) PO SCH (09:57)
[2022-12-28] MEDS: LISINOPRIL 10 MG TABLET PO SCH (09:57)
[2022-12-28] MEDS: NICOTINE 14 MG/24 HOURS TOPICAL PATCH TD SCH (09:58)
[2022-12-28] MEDS: QUEtiapine FUMARATE 25 MG TABLET PO SCH (21:26)
[2022-12-28] MEDS: THIAMINE HCL 100 MG TABLET (FP) PO SCH (21:26)
[2022-12-28] MEDS: MELATONIN 5 MG TABLETS PO SCH (21:26)
[2022-12-28] MEDS: ATORVASTATIN CA 10 MG TABLET (FP) PO SCH (21:26)
[2022-12-28] MEDS: BACLOFEN 10 MG TABLET (FP) PO PRN (21:27)
[2022-12-29] MEDS: IBUPROFEN 400 MG TABLET (FP) PO PRN (03:49)
[2022-12-29] MEDS: metFORMIN HCL 500 MG TABLET (FP) PO SCH ×2 (06:08→16:33)
[2022-12-29] MEDS: GABAPENTIN 300 MG CAPSULE PO SCH ×3 (06:08→21:24)
[2022-12-29] MEDS: DARUNAVIR/COB/EMTRI/TENOF (SYMTUZA) TABLET (NF) PO SCH (07:10)
[2022-12-29] MEDS: LISINOPRIL 10 MG TABLET PO SCH (09:49)
[2022-12-29] MEDS: NICOTINE 14 MG/24 HOURS TOPICAL PATCH TD SCH (09:49)
[2022-12-29] MEDS: HYDROCHLOROTHIAZIDE 25 MG TABLET (FP) PO SCH (09:49)
[2022-12-29] MEDS: PRENATAL VITAMINS W/ FOLIC ACID TABLET (FP) PO SCH (09:49)
[2022-12-29] MEDS: MELATONIN 5 MG TABLETS PO SCH (21:23)
[2022-12-29] MEDS: QUEtiapine FUMARATE 25 MG TABLET PO SCH (21:24)
[2022-12-29] MEDS: ATORVASTATIN CA 10 MG TABLET (FP) PO SCH (21:24)
[2022-12-29] MEDS: THIAMINE HCL 100 MG TABLET (FP) PO SCH (21:24)
[2022-12-29] MEDS: BACLOFEN 10 MG TABLET (FP) PO PRN (21:25)
[2022-12-29] MEDS: ARTIFICIAL TEARS (POLYVINYL ALCOHOL) OPTH DROPS OU PRN (21:26)
[2022-12-30] MEDS: GABAPENTIN 300 MG CAPSULE PO SCH (05:58)
[2022-12-30] MEDS: NICOTINE 10 MG CARTRIDGE (INHALER) IH PRN (06:09)
[2022-12-30] MEDS: metFORMIN HCL 500 MG TABLET (FP) PO SCH (06:09)
[2022-12-30] MEDS: DARUNAVIR/COB/EMTRI/TENOF (SYMTUZA) TABLET (NF) PO SCH (07:21)
[2022-12-30 07:23] VITALS: TEMP 97
[2022-12-30] MEDS: LISINOPRIL 10 MG TABLET PO SCH (09:20)
[2022-12-30] MEDS: PRENATAL VITAMINS W/ FOLIC ACID TABLET (FP) PO SCH (09:20)
[2022-12-30] MEDS: HYDROCHLOROTHIAZIDE 25 MG TABLET (FP) PO SCH (09:20)
[2022-12-30] MEDS: NICOTINE 14 MG/24 HOURS TOPICAL PATCH TD SCH (09:21)
[2022-12-30 09:29] VITALS: BP 143/68; PULSE 79
== END 2022-12-30 09:35 | disposition home or self-care (01) | DRG 772 ==
LOC: YASAS 15:32 → Y5N 19:50
PROVIDERS: ADMIT Allergy & Immunology; ATTEND Psychiatry & Neurology Pain Medicine
PROC: HZ42ZZZ Group Counseling for Substance Abuse Treatment, Cognitive-Behavioral (ICD-10-PCS; principal; 2022-12-24)
DX: F11.20 Opioid dependence, uncomplicated (principal); F14.20 Cocaine dependence, uncomplicated; F17.210 Nicotine dependence, cigarettes, uncomplicated; F19.282 Other psychoactive substance dependence with psychoactive substance-induced sleep disorder; F39 Unspecified mood [affective] disorder; Z21 Asymptomatic human immunodeficiency virus [HIV] infection status; I10 Essential (primary) hypertension; J45.909 Unspecified asthma, uncomplicated; G62.9 Polyneuropathy, unspecified; E11.9 Type 2 diabetes mellitus without complications; Z79.84 Long term (current) use of oral hypoglycemic drugs
CPT/HCPCS: 36415; 80053; 81003; 82962; 85027; 86480; 86780; 86803; 93005; 93010; C9803-CS; J0475; U0003; U0005